=== PATIENT | female | born 1985 | race Two or more races ===

== ENCOUNTER 2019-08-02 02:35 | Emergency (ER) | payer OTHER ==
[~2019-08-02] VITALS: Ht 162.6 cm; Wt 86.2 kg
[2019-08-02] MEDS ORDERED: FLUORESCEIN SODIUM 1 MG STRIP ONE (02:52)
[2019-08-02] MEDS ORDERED: TETRACAINE HCL 0.5% OPHT DROP 2 ML BOTTLE ONE (02:52)
[2019-08-02] MEDS ORDERED: FLUOROMETHOLONE 0.1% OP ONE (03:00)
[2019-08-02] MEDS ORDERED: TETRACAINE HCL 0.5% OPHT DROP 2 ML BOTTLE OP ONE (03:00)
--- NOTE | 2019-08-02 03:01 | NUR ---
MD AT BEDSIDE FOR HX AND PHYSICAL
--- NOTE | 2019-08-02 03:09 | NUR ---
PT ABLE TO TOLERATE EYE EXAM AND EYE ASSESSMENT
[2019-08-02] MEDS ORDERED: OXYCODONE/APAP 5-325 MG TABLET PO ONE (03:15)
[2019-08-02] MEDS ORDERED: IBUPROFEN 800 MG TABLET PO ONE (03:15)
[2019-08-02] MEDS ORDERED: OXYCODONE/APAP 5-325 MG TABLET ONE (03:16)
[2019-08-02] MEDS ORDERED: IBUPROFEN 800 MG TABLET ONE (03:16)
--- NOTE | 2019-08-02 04:08 | NUR ---
Patient discharged to home in stable conditon. Written and verbal after care instructions given. Patient verbalizes understanding of instructions. AMBULATORY W/ STABLE GAIT ALL BELONGINGS W/ PT
[2019-08-02 04:09] VITALS: BP 132/87
== END 2019-08-02 04:10 | disposition home or self-care (01) ==
LOC: ER 02:41
DX: H18.821 Corneal disorder due to contact lens, right eye (principal)
CPT/HCPCS: A4663